=== PATIENT | male | born 1990 | race Caucasian/White ===

== ENCOUNTER → 2019-11-16 | Day surgery (SDC) | payer BC ==
[~2019-11-16] MED LIST: BUSPIRONE HCL5 MG PO; DEXMEDETOMIDINE HCL 2 ML ONE; DEXMEDETOMIDINE HCL 200 MCG/2 ML VIAL ONE; ETOMIDATE 2 MG/ML 10 ML INJ IV ONE; LIDOCAINE HCL 2% LOCAL INJ 5 ML SDV VIAL INJ ONE; LISINOPRIL10 MG PO; METOCLOPRAMIDE HCL 10 MG/2ML VIAL ONE; OMEPRAZOLE40 MG PO; PROPOFOL IV EMULSION 10 MG/ML 20 ML VIAL ONE; SODIUM CHLORIDE 0.9% 50ML 50 ML ONE
[2019-11-16 10:10] VITALS: BP 103/58
--- NOTE | 2019-11-16 10:28 | Operative Report ---
DATE OF PROCEDURE: 11/16/2019 SURGEON: Manish Tillman MD PROCEDURE: Esophagogastroduodenoscopy with biopsies. INDICATIONS FOR EGD: History of hematemesis and upper abdominal pain. MEDICATIONS: The patient was done under MAC, please see anesthesiologist's note. PROCEDURE IN DETAIL: With the patient in left lateral decubitus position, a flexible fiberoptic Olympus gastroscope was introduced into the esophagus under direct visualization without any difficulty. There was some patchy erythema noted in distal esophagus. The scope was then advanced with ease into the stomach, traversing a small sliding hiatal hernia. Mucosa overlying the antrum and the body revealed some patchy erythema and [id number] edema, and biopsies were obtained, sent to stain for H pylori. Pylorus was of normal contour and shape, was intubated with ease and the scope was advanced all the way to the second portion of the duodenum. Biopsies were obtained from the proximal second portion and the duodenal bulb to rule out sprue. The scope was then withdrawn back into the stomach and retroflexed mucosa overlying the fundus and cardia appeared to be within normal limits. The scope was then straightened out and it was subsequently withdrawn. The patient tolerated the procedure well. IMPRESSION: 1. Distal esophagitis, mild. 2. Small sliding hiatal hernia. 3. Gastritis, biopsied, biopsies sent to stain for H pylori. 4. Rule out sprue. PLAN: Follow up histology. Continue omeprazole 40 mg one p.o. q.a.m. before meals. Manish Tillman MD [facility] [place] [place] /[id number] cc: Rich Doe MD
== END | disposition home or self-care (01) ==
LOC: OR 08:01
PROVIDERS: ATTEND Internal Medicine Gastroenterology
DX: K92.0 Hematemesis (principal); K29.50 Unspecified chronic gastritis without bleeding; K20.9 Esophagitis, unspecified; K21.9 Gastro-esophageal reflux disease without esophagitis; K44.9 Diaphragmatic hernia without obstruction or gangrene; I10 Essential (primary) hypertension; F41.9 Anxiety disorder, unspecified; F17.210 Nicotine dependence, cigarettes, uncomplicated; Z88.2 Allergy status to sulfonamides
CPT/HCPCS: 43239; J2001; J2765

== ENCOUNTER 2020-12-10 03:40 | Emergency (ER) | payer OTHER ==
[~2020-12-10] VITALS: Ht 182.9 cm; Wt 90.7 kg
[~2020-12-10 03:40] MED LIST changes: -DEXMEDETOMIDINE HCL 2 ML ONE; -DEXMEDETOMIDINE HCL 200 MCG/2 ML VIAL ONE; -ETOMIDATE 2 MG/ML 10 ML INJ IV ONE; -LIDOCAINE HCL 2% LOCAL INJ 5 ML SDV VIAL INJ ONE; -METOCLOPRAMIDE HCL 10 MG/2ML VIAL ONE; -PROPOFOL IV EMULSION 10 MG/ML 20 ML VIAL ONE; -SODIUM CHLORIDE 0.9% 50ML 50 ML ONE
== END 2020-12-10 04:30 | disposition home or self-care (01) ==
LOC: ER 04:16
DX: B35.6 Tinea cruris (principal); I10 Essential (primary) hypertension; Z72.0 Tobacco use
CPT/HCPCS: 99282